=== PATIENT | female | born 1970 | race Hispanic/Latino ===

== ENCOUNTER 2019-11-11 16:26 | Emergency (ER) | payer SELFPAY ==
[2019-11-11 16:38] VITALS: BP 167/91; PULSE 79; RESP 18; TEMP 37.1; O2SAT 99
--- NOTE | 2019-11-11 16:41 | ED.UPPEXIN ---
HPI - Extremity Injury (Upper) General Chief Complaint: Extremity Problem,Nontraumatic Stated Complaint: Right finger pain Time Seen by Provider: 11/11/19 17:05 Source: patient and RN notes reviewed Mode of arrival: ambulatory Limitations: no limitations History of Present Illness HPI narrative: 48-year-old female presents with concern for infection in her fingernails. Reports she has 2 painful areas, the fifth digit of her right hand and the fourth digit of her left hand. Reports redness, tenderness. Reports she finished a course of Keflex and reprocessing cream with no improvement. She denies any drainage from any areas Related Data Allergies Allergy/AdvReac Type Severity Reaction Status Date / Time aspirin Allergy Anaphylactic Verified 09/02/13 17:22 Shock Review of Systems Review of Systems: Narrative: CONSTITUTIONAL: Denies malaise, chills, sweats, or fever. SKIN: Reports painful, tender, red margins of fingernails of digits 5 on the right hand and 4 on the left hand. Reports cracked skin around the nail margins of all the other digits. All systems reviewed & are unremarkable except as noted in HPI and below PMFSH Social History Social History Gender identity (if verbalized by the patient): Female Comments At time of signature, agree with nursing past medical, surgical, social and family history. There is no relevant family history pertinent to the presenting complaint Exam Narrative: Exam Narrative: GENERAL: Well-appearing, well-nourished, and in no acute distress. HEAD: Normocephalic EYES: PERRLA, conjunctivae clear NECK: Supple. CHEST: Speaks in full sentences. No respiratory distress. HEART: Regular rate and rhythm. Normal and equal peripheral pulses. EXTREMITIES: Right hand and digits of right hand have normal strength and sensation, normal range of motion. 5/5 strength with digit flexion and extension. Normal sensation with sensitivity to light touch and pain. Distal pulses palpable and equal bilaterally, skin warm, dry, pink. Capillary refill less than 3 seconds. SKIN: Warm, dry, no rash. Erythema, tenderness, mild edema without fluctuation noted to the nail margin of the fifth digit of the right hand as well as the fourth digit of the left hand. All other nail margins are noted to have dry, cracked skin. NEURO: Alert and oriented x3. PSYCH: Normal mood and affect Course Course Emergency Course: Discussed with patient possible fungal paronychia, as evidenced by no improvement with antibiotic treatment, dry cracked skin on all nail margins. Discussed treatment of fungal paronychia, follow-up with primary care provider. Patient is aware of diagnosis, understands and agrees to treatment plan. Anticipatory guidance given. Patient agrees to follow-up as directed and is aware of reasons to seek care at the emergency department. Portions of this record may have been created with voice recognition software Vital Signs Vital signs: Vital Signs Temperature 98.7 F 11/11/19 16:38 Pulse Rate 79 11/11/19 16:38 Respiratory Rate 18 11/11/19 16:38 Blood Pressure 167/91 H 11/11/19 16:38 Pulse Oximetry 99 11/11/19 16:38 Temperature 98.7 F 11/11/19 16:38 Pulse Rate 79 11/11/19 16:38 Respiratory Rate 18 11/11/19 16:38 Blood Pressure 167/91 H 11/11/19 16:38 Pulse Oximetry 99 11/11/19 16:38 Reviewed. MDM - Extremity Injury (Upper) MDM Narrative Medical decision making narrative: Exam findings show no acute concerns or changes; patient is non-toxic appearing and is in no distress. Patient is appropriate for outpatient treatment and follow-up. Differential Diagnosis Differential diagnosis: Likely other (Paronychia, abscess, ingrown nail, cellulitis) Critical Care Time Critical Care Time Critical Care Time: No Discharge Plan Discharge Clinical Impression: Paronychia of finger of left hand, Paronychia of finger of right hand Patient Disposition: Home, Self-Care Con
== END 2019-11-11 17:29 | disposition home or self-care (01) ==
PROVIDERS: Emergency Provider Nurse Practitioner; PCP Registered Nurse
DX: L03.011 Cellulitis of right finger (principal); L03.012 Cellulitis of left finger
CPT/HCPCS: 99203; G0463

== ENCOUNTER 2021-06-08 16:48 | Emergency (ER) | payer SELFPAY ==
[2021-06-08 17:14] VITALS: BP 136/79; PULSE 71; RESP 18; TEMP 37.1; O2SAT 100
--- NOTE | 2021-06-08 18:46 | ED.FEMALEGU ---
HPI - Female Genitourinary General Chief complaint: Urogenital-Female Stated complaint: UTI Time Seen by Provider: 06/08/21 18:45 Source: patient, family and RN notes reviewed Mode of arrival: ambulatory Limitations: no limitations History of Present Illness HPI Narrative: 50-year-old female who presents to [facility] with complaints of UTI symptoms of burning with urination, urinary frequency and pain with urination. patient denies any vaginal discharge or any itching report that she seen her [employer] about 15 days ago for examination. Patient denies any fevers chills or sweats, no nausea or vomiting or decrease in appetite. Patient has not taken any AZO MD elicited complaint: dysuria and UTI Related Data Allergies Allergy/AdvReac Type Severity Reaction Status Date / Time aspirin Allergy Anaphylactic Verified 09/02/13 17:22 Shock Review of Systems Review of Systems: CONSTITUTIONAL: Denies fever, chills, or sweats. EYES: Denies visual changes, redness, or discharge. ENT: Denies rhinorrhea, congestion, sore throat, or otalgia. CARDIOVASCULAR: Denies chest pain, palpitations, or edema. RESPIRATORY: Denies cough or dyspnea. GASTROINTESTINAL: positive for suprapubic abdominal pain, no nausea, vomiting, or diarrhea. GENITOURINARY: Positive for dysuria or hematuria. SKIN: Denies rash or itching. MUSCULOSKELETAL: Denies back pain, joint pain, or myalgia. NEUROLOGIC: Denies headache, numbness, or weakness. PSYCHIATRIC: Denies anxiety or depression. All systems reviewed & are unremarkable except as noted in HPI and below PMFSH Past Medical History Medical History (Updated 06/10/21 @ 19:42 by Leslee Lara NP) Elevated cholesterol Ovarian cyst UTI (urinary tract infection) Family History Family History (Updated 06/10/21 @ 19:42 by Leslee Lara NP) Other No significant family history Social History Social History (Updated 06/10/21 @ 19:41 by Leslee Lara NP) Smoking status: Never smoker Alcohol intake: current Alcohol use details: rare social Substance use: never Living arrangements: with family Gender identity (if verbalized by the patient): Female Comments At time of signature, agree with nursing past medical, surgical, social and family history. There is no relevant family history pertinent to the presenting complaint Exam Narrative: GENERAL: Well-appearing, well-nourished, and in no acute distress. HEAD: Normocephalic, atraumatic. EYES: PERRLA and EOMI. ENT: Nares clear, no rhinorrhea or epistaxis. Mucous membranes moist.TM's normal, throat pink with no lesions or exudates NECK: Supple.no lymphadenopathy CHEST: Clear to auscultation. No respiratory distress.SAO2 100% on room air HEART: Regular rate and rhythm. No murmur heard. Normal peripheral pulses. ABDOMEN: Soft,tender suprapubic abdomen, nondistended, normal active bowel sounds.No CVA tenderness on examination. EXTREMITIES: Normal range of motion. No edema. SKIN: Warm, dry, no rash. NEURO: No focal deficits. Alert and oriented x3. Course Vital Signs Vital signs: Vital Signs Temperature 37.1 C 06/08/21 17:14 Pulse Rate 71 06/08/21 17:14 Respiratory Rate 18 06/08/21 17:14 Blood Pressure 136/79 06/08/21 17:14 Pulse Oximetry 100 06/08/21 17:14 Temperature 37.1 C 06/08/21 17:14 Pulse Rate 71 06/08/21 17:14 Respiratory Rate 18 06/08/21 17:14 Blood Pressure 136/79 06/08/21 17:14 Pulse Oximetry 100 06/08/21 17:14 MDM - Female Genitourinary Differential Diagnosis Differential diagnosis: Likely urinary tract infection, vaginitis, cystitis and other (dysuria and hematuria) Medical Records Attestation: I reviewed the patient's medical records. Lab Data Attestation: I reviewed the patient's lab results. Lab results narrative: Glucose negative, bilirubin negative, ketones negative, specific gravity 1.020, blood 3+, pH 7.0, protein 3+, urobilirubin 0.2, nitrate negative, leukocyte 3+
== END 2021-06-08 19:17 | disposition home or self-care (01) ==
PROVIDERS: Emergency Provider Registered Nurse; PCP Registered Nurse
DX: N39.0 Urinary tract infection, site not specified (principal)
CPT/HCPCS: 81003; 87077; 87086; 87088; 87186; 99213; G0463

== ENCOUNTER 2023-01-31 15:07 | Emergency (ER) | payer OTHER, SELFPAY ==
--- NOTE | ~2023-01-31 | XR_ITS ---
EXAMINATION: XR foot LT min 3V DATE: 01/31/2023 15:36 INDICATION: Left foot pain. TECHNIQUE: 4 views of left foot were obtained. COMPARISON: None. FINDINGS: Bone alignment is normal. No fracture. Joint spaces are normal. There is an enthesophyte at posterior aspect of calcaneal tuberosity. IMPRESSION: 1. No fracture. Reviewed, dictated and finalized at location A. IMPRESSION: 1. No fracture.
[2023-01-31 15:22] VITALS: BP 146/78; PULSE 70; RESP 16; TEMP 36.9; O2SAT 99
--- NOTE | 2023-01-31 15:33 | ED.LOWEXIN ---
HPI - Extremity Injury (Lower) General Chief Complaint: Extremity Injury, Lower Stated Complaint: numbness and sharp pain in left foot/ankle Time Seen by Provider: 01/31/23 15:47 Source: patient and RN notes reviewed Mode of arrival: ambulatory Limitations: no limitations History of Present Illness HPI Narrative: 52-year-old female presents with concern for let foot, ankle and leg pain. Reports 15 days ago she was stretching her foot and ankle when she felt a sudden sharp pain. The pain has not improved over the last two weeks. She reports a sharp stinging pain, and itching calf. She has not taken any medications for her pain, she cannot take NSAIDS. She denies redness, warmth, swelling, bruising. MD complaint: foot injury Related Data Home Medications Medication Instructions Recorded Confirmed cevimeline 30 mg capsule 01/31/23 hydroxychloroquine 200 mg tablet mg PO 01/31/23 Allergies Allergy/AdvReac Type Severity Reaction Status Date / Time aspirin Allergy Anaphylactic Verified 01/31/23 15:15 Shock Review of Systems Review of Systems: CONSTITUTIONAL: Denies malaise, chills, sweats, or fever. SKIN: Denies rash or itching, open skin, laceration, abrasion, redness, warmth, swelling. MUSCULOSKELETAL: Reports left foot, ankle, leg pain NEUROLOGIC: Denies numbness, weakness All systems reviewed & are unremarkable except as noted in HPI and below PMFSH Past Medical History Medical History (Updated 01/31/23 @ 15:56 by Renuka Keith NP) Elevated cholesterol Ovarian cyst UTI (urinary tract infection) Family History Family History (Updated 06/10/21 @ 19:42 by Leslee Lara NP) Other No significant family history Social History Social History (Updated 06/10/21 @ 19:41 by Leslee Lara NP) Smoking status: Never smoker Alcohol intake: current Alcohol use details: rare social Substance use: never Living arrangements: with family Gender identity (if verbalized by the patient): Female Comments At time of signature, agree with nursing past medical, surgical, social and family history. There is no relevant family history pertinent to the presenting complaint Exam Narrative: GENERAL: Well-appearing, well-nourished, and in no acute distress. HEAD: Normocephalic, atraumatic. EYES: PERRLA, conjunctivae clear NECK: Supple. CHEST: Speaks in full sentences. No respiratory distress. HEART: Regular rate and rhythm. Normal and equal peripheral pulses. EXTREMITIES: Left digits, foot, ankle, calf has normal strength and sensation, normal range of motion. No edema or ecchymosis. 5/5 strength with ankle in digit flexion and extension. Normal sensation with sensitivity to light touch and pain. No point tenderness. No open wounds, no skin tenting, no devitalized tissue or atrophy, no trophic changes, no obvious deformity, alignment normal, nearby joints and structures intact. Distal pulses palpable and equal bilaterally, skin warm, dry, pink. Capillary refill less than 3 seconds. SKIN: Warm, dry, no rash. NEURO: Alert and oriented x3. PSYCH: Normal mood and affect Course Course Emergency Course: Patient is aware of diagnosis, understands and agrees to treatment plan. Anticipatory guidance given. Patient agrees to follow-up as directed and is aware of reasons to seek care at the emergency department. Portions of this record may have been created with voice recognition software Level of Care: Express Care Visit Vital Signs Vital signs: Vital Signs Temperature 98.5 F 01/31/23 15:22 Pulse Rate 70 01/31/23 15:22 Respiratory Rate 16 01/31/23 15:22 Blood Pressure 146/78 H 01/31/23 15:22 Pulse Oximetry 99 01/31/23 15:22 Oxygen Delivery Room Air 01/31/23 15:22 Temperature 98.5 F 01/31/23 15:22 Pulse Rate 70 01/31/23 15:22 Respiratory Rate 16 01/31/23 15:22 Blood Pressure 146/78 H 01/31/23 15:22 Pulse Oximetry 99 01/31/23 15:22 Oxygen [employer]
== END 2023-01-31 16:12 | disposition home or self-care (01) ==
PROVIDERS: Emergency Provider Nurse Practitioner; PCP Registered Nurse
DX: S99.922A Unspecified injury of left foot, initial encounter (principal); X50.9XXA Other and unspecified overexertion or strenuous movements or postures, initial encounter; E78.00 Pure hypercholesterolemia, unspecified
CPT/HCPCS: 73630; 99213; G0463

== ENCOUNTER 2024-01-31 15:02 | Emergency (ER) | payer OTHER, SELFPAY ==
[2024-01-31 15:11] VITALS: BP 129/80; PULSE 81; RESP 16; TEMP 36.7; O2SAT 99
--- NOTE | 2024-01-31 15:20 | ED.URI ---
HPI - URI/Sore Throat General Chief Complaint: Upper Respiratory Infection Stated Complaint: throat hurts Time Seen by Provider: 01/31/24 15:20 Source: patient, RN notes reviewed and old records reviewed Mode of arrival: ambulatory Limitations: no limitations History of Present Illness HPI Narrative: 53-year-old female presents to the [facility] with a sore scratchy since last week, 5 days patient reports that she was in [place] and received 3 shots over the weekend that were antibiotics. Patient denies fevers Patient denies any other symptoms sore scratchy throat Treatments prior to arrival: other (Antibiotic shots x3 in [place]) Related Data Home Medications Medication Instructions Recorded Confirmed cevimeline 30 mg capsule 30 mg PO DAILY 01/31/23 01/31/24 pantoprazole 40 mg tablet,delayed 40 mg PO DAILY 01/31/24 01/31/24 release Allergies Allergy/AdvReac Type Severity Reaction Status Date / Time aspirin Allergy Severe Anaphylactic Verified 01/31/24 15:13 Shock Review of Systems Review of Systems: All systems reviewed & are unremarkable except as noted in HPI and below Constitutional: Constitutional: Reports no additional constitutional complaints Eyes: Eyes: Reports no additional eye complaints ENT: Reports as per HPI and Reports sore throat Cardiovascular: Cardiovascular: Reports no additional cardiovascular complaints, Denies chest pain and Denies dyspnea Respiratory: Respiratory: Reports no additional respiratory complaints, Denies chest congestion, Denies cough and Denies dyspnea Gastrointestinal: Gastrointestinal: Reports no additional gastrointestinal complaints, Denies abdominal pain, Denies nausea and Denies vomiting Musculoskeletal: Musculoskeletal: Reports no additional musculoskeletal complaints Integumentary/Breasts: Skin/Breast: Reports system reviewed and no additional complaints, except as docu Neurologic: Reports system reviewed and no additional complaints, except as documented Psychiatric: Psychiatric: Reports no additional psychiatric complaints Allergic/Immunologic: Allergic/Immunologic: Reports no additional allergic/immunologic complaints PMFSH Past Medical History Medical History Elevated cholesterol Ovarian cyst UTI (urinary tract infection) Family History Family History Other No significant family history Social History Social History Smoking status: Never smoker Alcohol intake: current Alcohol use details: rare social Substance use: never Living arrangements: with family Gender identity (if verbalized by the patient): Female Comments At the time of my signature, I reviewed and agree with the nursing past medical, surgical, social, and family history. There is no relevant family history pertinent to the patient complaint. Exam Const: General: cooperative, healthy appearing, comfortable, no acute distress, well developed, alert and well nourished Nutritional Appearance: well nourished Orientation/consciousness: patient oriented x3 Limitations: no limitations HENMT: Head: normal to inspection Ears: hearing grossly normal bilaterally, external ears normal, TM's normal bilaterally, EAC's normal, mastoids normal and no periauricular adenopathy Face/Nose/Sinus: Normal external nose present, Normal nares present, Normal nasal mucous membranes and turbinates present, normal facial exam and face symmetric Face and sinus: normal facial exam and face symmetric Mouth: Yes Normal oral and palatal mucosa present, Yes lip normal and Yes moist mucous membranes Throat: posterior oropharynx normal, uvula midline, postnasal drainage and no uvular edema Eyes: General: appearance normal, both eyes and all related structures Alignment and Position: alignment normal Periorbital: periorbital findin
== END 2024-01-31 15:36 | disposition home or self-care (01) ==
PROVIDERS: Emergency Provider Nurse Practitioner; PCP Registered Nurse
DX: J02.9 Acute pharyngitis, unspecified (principal); E78.00 Pure hypercholesterolemia, unspecified
CPT/HCPCS: 87081; 87880; 99213; G0463

== ENCOUNTER 2025-03-06 13:45 | Emergency (ER) | payer OTHER, SELFPAY ==
--- NOTE | 2025-03-06 13:48 | ED.URI ---
HPI - URI/Sore Throat General Chief Complaint: Upper Respiratory Infection Stated Complaint: chest congestion,sorethroat Time Seen by Provider: 03/06/25 13:48 Source: patient Mode of arrival: ambulatory Limitations: no limitations History of Present Illness HPI Narrative: Patient is a 54-year-old female that presents with chest congestion and sore throat for 3 days. Patient is used Mucinex and TheraFlu once last night. Denies any fever, congestion, ear pain, nausea, vomiting, diarrhea. Denies cough keeping her up at night. Related Data Home Medications ?Medication ?Instructions ?Recorded ?Confirmed ?Last Taken ?Type cevimeline 30 mg capsule 30 mg PO DAILY 01/31/23 01/31/24 Unknown History pantoprazole 40 mg tablet,delayed 40 mg PO DAILY 01/31/24 01/31/24 Unknown History release Allergies Allergy/AdvReac Type Severity Reaction Status Date / Time aspirin Allergy Severe Anaphylactic Verified 03/06/25 13:47 Shock Review of Systems Review of Systems: All systems reviewed & are unremarkable except as noted in HPI and below Constitutional: Constitutional: Denies chills, Denies fatigue, Denies fever(s), Denies headache(s), Denies malaise and Denies weakness Eyes: Eyes: Denies blurry vision, Denies itchy eyes and Denies loss of vision ENT: Denies otalgia, Denies headache(s), Denies nasal congestion, Denies sinus pain and Reports sore throat Cardiovascular: Cardiovascular: Denies chest pain, Denies irregular heart rhythm and Denies dyspnea Respiratory: Respiratory: Reports cough and Denies dyspnea Gastrointestinal: Gastrointestinal: Denies abdominal pain, Denies diarrhea, Denies nausea and Denies vomiting Musculoskeletal: Musculoskeletal: Denies back pain, Denies myalgias and Denies arthralgias Integumentary/Breasts: Skin/Breast: Denies pruritus and Denies rash Neurologic: Denies headache(s), Denies loss of vision and Denies weakness Psychiatric: Psychiatric: Reports no additional psychiatric complaints Endocrine: Endocrine: Denies fatigue Allergic/Immunologic: Allergic/Immunologic: Denies itchy eyes PMFSH Past Medical History Medical History Ovarian cyst UTI (urinary tract infection) Elevated cholesterol Family History Family History Other No significant family history Social History Social History Smoking status: Never smoker Alcohol intake: current Alcohol use details: rare social Substance use: never Living arrangements: with family Gender identity (if verbalized by the patient): Female Comments At time of signature, agree with nursing past medical, surgical, social and family history. There is no relevant family history pertinent to the presenting complaint. Exam Const: General: cooperative, healthy appearing, comfortable, no acute distress and well nourished Nutritional Appearance: well nourished Orientation/consciousness: patient oriented x3 Limitations: no limitations HENMT: Head: normal to inspection, normocephalic and atraumatic Ears: hearing grossly normal bilaterally, external ears normal, TM's normal bilaterally, EAC's normal and no periauricular adenopathy Face/Nose/Sinus: Normal external nose present, Abnormal mucous membranes and turbinates present erythematous bilateral and diffuse, normal facial exam, sinuses nontender and face symmetric Face and sinus: normal facial exam, sinuses nontender and face symmetric Mouth: Yes Normal oral and palatal mucosa present, Yes lip normal, Yes tongue normal, Yes Normal salivary glands and ducts present, Yes oropharynx normal and Yes moist mucous membranes Teeth and gingiva: dentition normal Throat: posterior oropharynx normal, tonsils normal and uvula midline Eyes: General: appearance normal, both eyes and all related structures Alignment and Position: alignment normal and position normal Periorbital: periorbital findings normal Eyelids: eyelids normal Pupils: Equal, round and reactive pupils present Neck: Neck: normal visual inspection, full ROM, no lymphadenopathy and supple Chest: Chest palpation & inspection: normal inspection of the chest and normal palpation of entire chest wall Resp: Effort & Inspection: normal respiratory effort and able to speak in complete sentences Auscultation: no crackles, no rales, rhonchi (Clears with cough) left upper and right upper and no wheezes Cardio: Rate: regular rate Rhythm: regular rhythm Heart sounds: S1 normal heart sound present and S2 normal heart sound present GI: Inspection: normal to inspection Skin: General skin exam: normal color and no rashes or lesions noted Neuro: General: patient oriented x3 and moves all extremities Cranial nerves: Yes Equal, round and reactive pupils present Speech: normal speech Gait exam (Neuro): Normal gait present Extrem: General: normal to inspection, full ROM and no edema Psych: Appearance: grossly normal and well kempt Mental Status: mental status grossly normal Speech and movement: Normal speech and movement present Affect: normal affect Attitude: cooperative Thought process: Normal thought process present Course Course Emergency Course: Discharge instructions reviewed with patient, as well as provided in writing per nursing staff. The instructions also include specific and strict return/GO TO THE ER as well as f/u information. All questions have been answered, and the patient deny any further questions with discharge and discharge plan. Portions of this record may have been created with voice recognition software Level of Care: Express Care Visit Vital Signs Vital signs: Vital Signs Temperature 36.8 C 03/06/25 13:55 Pulse Rate 74 03/06/25 13:55 Respiratory Rate 14 03/06/25 13:55 Blood Pressure 132/73 03/06/25 13:55 Temperature 36.8 C 03/06/25 13:55 Pulse Rate 74 03/06/25 13:55 Respiratory Rate 14 03/06/25 13:55 Blood Pressure 132/73 03/06/25 13:55 Reviewed MDM - URI/Sore Throat MDM Narrative Medical decision making narrative: Pt well hydrated appearing, in no respiratory distress, hemodynamically stable. Recommend supportive care. The patient is stable at time of discharge the clinical impression was discussed and the patient was given the opportunity to ask questions, which were addressed as completely as possible given the information available at present. Anticipatory guidance and return to care precautions were discussed and the importance of primary care follow-up was stressed and encouraged. The patient voiced understanding of the plan, indications to return, and the need for follow-up. Exam findings show no acute concerns or changes Patient is appropriate for outpatient treatment and follow-up. Differential diagnosis considered: Liu virus, strep pharyngitis, allergic rhinitis, upper respiratory tract infection, sinusitis, rhinosinusitis, nasopharyngitis. viral pharyngitis, otitis media, otitis externa, otitis effusion, foreign body, cerumen impaction, viral syndrome, and influenza.? Medical Records Attestation: I reviewed the patient's medical records. Discharge Plan Discharge Clinical Impression: Bronchitis Patient Disposition: Home Condition: Stable Instructions: Acute Bronchitis (ED) Additional Instructions: Use Tessalon Perles as needed for cough. Use inhaler with spacer as needed. Other symptomatic treatments include: -Alternate Tylenol and Motrin per package directions for fever or pain: Tylenol 650-1000mg by mouth every 4-6 hours. Do not exceed 4000mg in 24 hours. Advil (Ibuprofen) 600 mg by mouth every 6 hours. Do not exceed 2400mg in 24 hours. 8 AM: Tylenol 11 AM: Ibuprofen 2 PM: Tylenol 5 PM: Ibuprofen 8 PM: Tylenol 11 PM: Ibuprofen 2 AM: Tylenol 5 AM: Ibuprofen -Antihistamine medication such as Benadryl at night and Zyrtec/Claritin/Kristina during the day can help improve symptoms. -Use Flonase twice a day for 5 days then daily to help reduce the inflammation and dry up your sinuses. -You can also use Sudafed or Mucinex. Be sure to drink plenty of water with these medications at least 8 ounces with every dose and it is important to drink 8 to 10 glasses of water per day. Water is a natural decongestant -Eat and drink things that are easy to swallow, like tea or soup, or popsicles. -Oral rinses such as: Salt water gargles and/or may use topical anesthetic (eg. Chloraseptic spray) or lozenges to relieve dryness or throat pain). -Frequent hand washing or hand implementation consultant is one of the best ways to prevent spread of infection. -Using a vaporizer or humidifier at night will also help thin secretions and help with coughing up phlegm. Call your Primary Care Doctor and make a follow-up appointment in 3 days. If your cough worsens, you develop a fever greater than 103, you develop shaking chills, a fast heartbeat, trouble breathing and/or feel you are are breathing much faster than usual, call your Primary Care Doctor or go to the ER. Patient Language: Icelandic Prescriptions: New (DME) Aerochamber MV Spacer See Rx Instructions .Route Qty: 1 0RF Rx Instructions: As directed benzonatate 100 mg capsule 100 mg PO BID PRN (Reason: cough) Qty: 14 0RF albuterol sulfate 90 mcg/actuation HFA aerosol inhaler 2 puff inhalation QID PRN (Reason: shortness of breath or wheezing) Qty: 6.7 0RF No Action cevimeline 30 mg capsule 30 mg PO DAILY pantoprazole 40 mg tablet,delayed release (DR/EC) 40 mg PO DAILY Follow-up/Referrals: Geovany,CASTILLO Cunha [Primary Care Provider] - 3 Days Stand Alone Forms: Work/School Release IP Time of Disposition: 14:30
[2025-03-06 13:55] VITALS: BP 132/73; PULSE 74; RESP 14; TEMP 36.8
== END 2025-03-06 14:38 | disposition home or self-care (01) ==
PROVIDERS: Emergency Provider Nurse Practitioner Family; PCP Registered Nurse
DX: J40 Bronchitis, not specified as acute or chronic (principal)
CPT/HCPCS: 99213; G0463

== ENCOUNTER 2025-09-10 16:03 | Emergency (ER) | payer OTHER, SELFPAY ==
[2025-09-10 16:10] VITALS: BP 152/83; PULSE 75; RESP 18; TEMP 36.5; O2SAT 97
--- NOTE | 2025-09-10 16:31 | ED.EAR ---
HPI - Ear Problem General Chief complaint: Ear Stated complaint: L ear pain Time Seen by Provider: 09/10/25 16:20 Source: patient Mode of arrival: ambulatory Limitations: no limitations History of Present Illness HPI Narrative: Sue is a 54-year-old female patient presenting to the clinic today with complaints of left ear pain that started last night. Also reports of both of her eyes are draining yellowish discharge. Is also reporting some eye discomfort. No fevers, chills, or no body aches. Has taken some Tylenol for her symptoms without much relief. Related Data Home Medications ?Medication ?Instructions ?Recorded ?Confirmed ?Last Taken ?Type cevimeline 30 mg capsule 30 mg PO DAILY 01/31/23 09/10/25 Unknown History pantoprazole 40 mg tablet,delayed 40 mg PO DAILY 01/31/24 09/10/25 Unknown History release Allergies Allergy/AdvReac Type Severity Reaction Status Date / Time aspirin Allergy Severe Anaphylactic Verified 09/10/25 16:08 Shock Review of Systems Review of Systems: Pertinent positives per HPI. Patient denies any fever, chills, rash, headache, visual changes, dizziness, cough, shortness of breath, chest pain, palpitations, nausea, vomiting, diarrhea, constipation, abdominal pain, or any urinary issues. PMFSH Past Medical History Medical History Ovarian cyst UTI (urinary tract infection) Elevated cholesterol Family History Family History Other No significant family history Social History Social History Smoking status: Never smoker Alcohol intake: current Alcohol use details: rare social Substance use: never Living arrangements: with family Gender identity (if verbalized by the patient): Female Comments At the time of my signature, I reviewed and agree with the nursing past medical, surgical, social, and family history. There is no relevant family history pertinent to the patient complaint. Exam Narrative: General: Well-developed, well nourished, in no apparent distress Head: Normocephalic, atraumatic Eyes: Pupils equally round and reactive to light bilaterally, EOM intact, sclera and conjunctive injected with yellow mucopurulent discharge, lids normal Ears: Left TMs intact, red, bulging, right TM intact and congested, ear canals clear, no drainage, grossly hearing normal. Nose: Nares patent, clear nasal discharge, mild inflammation, no sinus tenderness. Mouth: Oral pharynx red without lesions or masses, good dentition, MMM. Postnasal drip Neck: Supple, trachea midline, no enlargement of anterior or posterior cervical nodes, no thyroid masses or goiter palpable. Cardio: Regular rate and rhythm, s1 and s2 normal, no murmur appreciated. Resp: Clear to auscultation bilaterally, no rhonchi, rales, wheezing or rubs Course Course Level of Care: Express Care Visit Vital Signs Vital signs: Vital Signs Temperature 36.5 C 09/10/25 16:10 Pulse Rate 75 09/10/25 16:10 Respiratory Rate 18 09/10/25 16:10 Blood Pressure 152/83 H 09/10/25 16:10 Pulse Oximetry 97 09/10/25 16:10 Temperature 36.5 C 09/10/25 16:10 Pulse Rate 75 09/10/25 16:10 Respiratory Rate 18 09/10/25 16:10 Blood Pressure 152/83 H 09/10/25 16:10 Pulse Oximetry 97 09/10/25 16:10 MDM MDM Narrative Medical decision making narrative: At the time of visit patient is resting comfortably on the exam table. Patient appears to be nontoxic. Complaints of left ear pain that started last night. Also reports of both of her eyes are draining yellowish discharge. Is also reporting some eye discomfort and nasal congestion. No fevers, chills, or no body aches. Has taken some Tylenol for her symptoms without much relief. On exam patient has right TM intact congested, left TM intact, bulging, red, clear nasal drainage, sclera and conjunctive injected bilaterally with yellow mucopurulent discharge coming from the bilateral eyes, oral pharynx red with postnasal drip, lung sounds are clear, heart rates regular rate and rhythm Plan: I suspect patient likely has conjunctivitis and left otitis media. Prescription for amoxicillin and polymyxin eyedrops was sent to the pharmacy. Supportive measures were discussed with the patient and they voiced understanding discharge instructions and agrees to treatment plan. Return precautions reviewed Differential Diagnosis Differential Diagnosis: Differential diagnostic considerations for upper respiratory infection include upper respiratory infection, croup, otitis media, sinusitis, viral infection, bronchitis, influenza, pharyngitis, strep, uvulitis. Differential diagnostic considerations for eye problems include corneal abrasion, conjunctivitis, acute iritis, hyphemia, periorbital cellulitis, subconjunctival hemorrhage, glaucoma, corneal ulcer, ruptured globe, foreign body in eye. Discharge Plan Discharge Clinical Impression: Otitis media Qualifiers: Otitis media type: suppurative Chronicity: acute Laterality: left Recurrence: non-recurrent Spontaneous tympanic membrane rupture: without spontaneous rupture Qualified Code(s): H66.002 - Acute suppurative otitis media without spontaneous rupture of ear drum, left ear Conjunctivitis Qualifiers: Conjunctivitis type: acute Acute conjunctivitis type: unspecified Laterality: bilateral Qualified Code(s): H10.33 - Unspecified acute conjunctivitis, bilateral Patient Disposition: Home Condition: Stable Instructions: Antibiotic Form, Ear Infection (ED), Conjunctivitis (ED) Additional Instructions: Conjunctivitis discharge instructions: Conjunctivitis is considered contagious for 24 hours while on the antibiotic. Practice good hand washing techniques Avoid touching eyes Instill eyedrops as prescribed-polymyxin May use warm moist washcloth to help remove eye discharge If eyes are matted shut-do not pry eyes open-use a warm moist cloth to loosen matting and wipe matter away from eye May take Tylenol/Motrin as needed for pain or fever May take Benadryl as needed for itching Follow-up with your PCP in 3-5 days if symptoms persist or sooner if they worsen Go to the emergency room if you develop any fever that is not controlled by Tylenol or Motrin, loss of vision, eye pain, increase eye swelling,visual changes, headache, confusion, lethargy, weakness, chest pain, or shortness of breath. Ear pain discharge instructions: Take any prescribed medications only as directed amoxicillin Tylenol/motrin as needed for pain May use heating pad to alleviate pain Avoid bottle propping if ear infection in infant. If you get recurrent ear infections it may be warranted to follow up with ENT. Follow up with your PCP in 3-5 days if symptoms persist. Instrucciones para la secreci?n por conjuntivitis: La conjuntivitis se considera contagiosa alexis 24 horas mientras se carolyn el antibi?simone. L?vese isi las guero. Evite tocarse los ojos. Aplique las gotas oft?lmicas de polimixina seg?n lo prescrito. Puede usar un pa?o h?medo y tibio para eliminar la secreci?n ocular. Si los ojos est?n pegados, no los sadaf forzosamente. Use un pa?o h?medo y tibio para aflojar la pel?cula y limpiar la secreci?n. Puede shantal Tylenol/Motrin seg?n sea necesario para el dolor o la fiebre. Puede shantal Benadryl seg?n sea necesario para la picaz?n. Consulte con acuña m?dico de cabecera en 3 a 5 d?as si los s?ntomas persisten o antes si empeoran. Acuda a urgencias si presenta fiebre que no se controla con Tylenol o Motrin, p?rdida de visi?n, dolor ocular, aumento de la inflamaci?n ocular, cambios en la visi?n, dolor de aris, confusi?n, letargo, debilidad, dolor en el pecho o dificultad para respirar. Instrucciones para el stepan por dolor de o?do: [place] los medicamentos recetados solo seg?n las indicaciones (amoxicilina, Tylenol/Motrin) Se recomienda usar kely almohadilla t?rmica para aliviar el dolor. Si el beb? tiene kely infecci?n de o?do, evite apoyar el biber?n. Si tiene infecciones de o?do recurrentes, podr?a ser necesario un seguimiento con un otorrinolaring?logo. Consulte con acuña m?dico de cabecera en 3 a 5 d?as si los s?ntomas persisten. Patient Language: Luxembourgish Prescriptions: New amoxicillin 875 mg tablet 875 mg PO Q12H 7 Days Qty: 14 0RF polymyxin B sulf-trimethoprim 10,000 unit- 1 mg/mL drops 1 drp EACH EYE Q3H 7 Days Qty: 10 0RF Rx Instructions: while awake; do not exceed 6 doses in 24 hours No Action cevimeline 30 mg capsule 30 mg PO DAILY pantoprazole 40 mg tablet,delayed release (DR/EC) 40 mg PO DAILY Follow-up/Referrals: PHYSICIAN NOT ON STAFF,NONSTAFF [Primary Care Provider] Stand Alone Forms: Work/School Release IP Time of Disposition: 16:34 Quality NIHSS Nursing Documentation ED NIHSS nursing documentation: reviewed/agree
== END 2025-09-10 16:39 | disposition home or self-care (01) ==
PROVIDERS: Emergency Provider Nurse Practitioner Family
DX: H66.002 Acute suppurative otitis media without spontaneous rupture of ear drum, left ear (principal); H10.33 Unspecified acute conjunctivitis, bilateral; E78.00 Pure hypercholesterolemia, unspecified
CPT/HCPCS: 99213; G0463